=== PATIENT | female | born 1985 | race Caucasian/White ===

== ENCOUNTER 2017-06-10 19:07 | Emergency (ER) | payer MEDICAID ==
--- NOTE | 2017-06-10 19:24 | Emergency Department Record ---
History of Present Illness - General Chief complaint: Lower Extremity Pain Stated complaint: LT BIG TOE SWOLLEN/BRUISED Time Seen by Provider: 06/10/17 19:18 Source: Patient Mode of Arrival: Wheelchair Limitations: No limitations - History of Present Illness Initial comments: 31 yo female presents to ED for evaluation of left great toe pain and bruising after "kicking snow off from my car's wheel well" this morning. Patient denies injury to the foot or the remainder of the extremity. Patient reports taking tylenol and motrin with mild improvement in her pain symptoms. Patient reports a history of psoriasis and psoriatic arthritis that she takes methotrexate for. MD Complaint: Extremity pain Onset/Timin -: Days(s) Location: Left, Foot History of Same: No -: Yes Arthralgia Quality: Aching Consistency: Constant Improves with: Nothing Worsens with: Walking, Weight bearing Associated Symptoms: Denies other symptoms - Related Data Home Medications Medication Instructions Recorded Confirmed Last Taken Folic Acid 1 mg PO DAILY 06/10/17 06/10/17 Unknown Methotrexate [Xatmep] 6 mg PO WEEKLY 06/10/17 06/10/17 Unknown Ondansetron [Zofran Odt] 8 mg PO ASDIR 06/10/17 06/10/17 Unknown Allergies Allergy/AdvReac Type Severity Reaction Status Date / Time naproxen Allergy HIVES Verified 06/10/17 19:22 Review of Systems Constitutional: Denies: Chills, Fever, Malaise, Night sweats Eyes: Denies: Eye discharge, Eye pain ENT: Denies: Congestion, Ear pain, Epistaxis Respiratory: Denies: Cough, Dyspnea Cardiovascular: Denies: Chest pain, Dyspnea on exertion Endocrine: Denies: Fatigue, Heat or cold intolerance Gastrointestinal: Denies: Abdominal pain, Nausea, Vomiting Genitourinary: Denies: Incontinence, Retention Musculoskeletal: Reports: Arthralgia, Joint swelling. Denies: Back pain, Gout Skin: Reports: Bruising. Denies: Change in hair/nails Neurological: Denies: Confusion, Headache Psychiatric: Denies: Anxiety Hematological/Lymphatic: Denies: Anemia, Blood Clots Past Medical History - SOCIAL HISTORY Smoking Status: Current every day smoker - RESPIRATORY Hx Respiratory Disorders: Yes Hx Asthma: Yes - CARDIOVASCULAR Hx Cardio Disorders: No Comment:: heart mumur congenital - NEURO Hx Neuro Disorders: No - GI Hx GI Disorders: No - Hx Genitourinary Disorders: Yes Hx UTI: Yes - ENDOCRINE Hx Endocrine Disorders: No Hx Diabetes: No Hx Thyroid Disease: No - MUSCULOSKELETAL Hx Musculoskeletal Disorders: No - PSYCH Hx Psych Problems: No - HEMATOLOGY/ONCOLOGY Hx Hematology/Oncology Disorders: No Family Medical History Hx Cancer: Grandparents *Cancer Comment: Aunt, Uncle *Kidney Comment: Aunt kidney problems Physical Exam - General General Appearance: Alert, Oriented x3, Cooperative, Mild distress Limitations: No limitations - Head Head exam: Atraumatic, Normocephalic, Normal inspection Head exam detail: negative: Abrasion, Contusion, Mcguire's sign, General tenderness, Hematoma, Laceration - Eye Eye exam: Normal appearance. negative: Conjunctival injection, Periorbital swelling, Periorbital tenderness, Scleral icterus - ENT Ear exam: negative: Auricular hematoma, Auricular trauma Nasal Exam: negative: Active bleeding, Discharge, Dried blood, Foreign body Mouth exam: negative: Drooling, Laceration, Muffled voice, Tongue elevation Teeth exam: Dental caries - Neck Neck exam: Normal inspection. negative: Meningismus, Tenderness - Respiratory Respiratory exam: Normal lung sounds bilaterally, Wheezes (mild right). negative: Rhonchi, Stridor - Cardiovascular Cardiovascular Exam: Regular rate, Normal rhythm, Normal heart sounds Peripheral Pulses: 3+: Dorsalis Pedis (L) - GI/Abdominal GI/Abdominal exam: Soft. negative: Rebound, Rigid, Tenderness - Rectal Rectal exam: Deferred - exam: Deferred - Extremities Extremities exam: Tenderness, Other (TTP and ecchymosis over the left great toe , strong DPP, no pain over the remainder of the foot/lower extremity). negative : Calf tenderness, Pedal edema - Back Back exam: Denies: CVA tenderness (R), CVA tenderness (L) - Neurological Neurological exam: Alert, Oriented X3. negative: Motor sensory deficit - Psychiatric Psychiatric exam: Normal affect, Normal mood - Skin Skin exam: Normal color, Other (areas of psoriasis are present on examination). negative: Abrasion Course - Reevaluation(s) Reevaluation #1: 06/10/17 19:46 Left great toe: Non-displaced intra-articular fracture distal phalanx of the left great toe Patient was updated on her radiology result, reports that she has a fracture foot to stabilize her toe fracture currently. Patient was counseled re: treatment for toe fracture (NSAID, ice, elevate, stabilization), and the patient reports that she is ready to go home at this time. Disposition Disposition: Discharge Clinical Impression: Toe fracture, left Qualifiers: Encounter type: initial encounter Toe: great toe Fracture type: closed Phalanx : distal Fracture alignment: nondisplaced Qualified Code(s): S92.425A - Nondisplaced fracture of distal phalanx of left great toe, initial encounter for closed fracture Disposition: Home, Self-Care Condition: (2) Stable Instructions: Toe Fracture (ED) Additional Instructions: Return to ED if your symptoms worsen or if you have any concerns. Ibuprofen as directed for pain symptoms, ice as needed. Follow-up with your family doctor in 3-5 days as directed. Forms: Patient Portal Access Time of Disposition: 20:17 Quality - Quality Measures Quality Measures: N/A - Blood Pressure Screening Does Patient Have Any of the Following: No Blood Pressure Classification: Hypertensive Reading Systolic Measurement: 134 Diastolic Measurement: 93 Screening for High Blood Pressure: < First Hypertensive BP, F/U Documented > [ [id number]] First Hypertensive Follow-up Interventions: Referral to alternative/primary care provider.
--- NOTE | 2017-06-11 13:11 | RADIOLOGY REPORT ---
EXAM: LEFT GREAT TOES HISTORY: KICKING INJURY THIS MORNING. GREAT TOE PAIN. TECHNIQUE: AP, lateral, and oblique views of the left great toe were obtained. Comparison: None. FINDINGS: There is a nondisplaced intraarticular fracture at the base of the distal phalanx best seen on the PA view. This was also faintly visualized on the lateral view. There is overlying soft tissue swelling. The remaining osseous and articular structures are intact. There are minor arthritic changes of the first metatarsal phalangeal joint. IMPRESSION: NONDISPLACED INTRAARTICULAR FRACTURE AT THE BASE OF THE FIRST DISTAL PHALANX. JOB NUMBER: [id number] MTDD
== END 2017-06-10 20:29 | disposition home or self-care (01) ==
LOC: ER 19:07
DX: S92.425A Nondisplaced fracture of distal phalanx of left great toe, initial encounter for closed fracture (principal); W22.8XXA Striking against or struck by other objects, initial encounter; F17.210 Nicotine dependence, cigarettes, uncomplicated
CPT/HCPCS: 73660; 99283